=== PATIENT | female | born 1975 | race Caucasian/White ===

== ENCOUNTER 2021-01-12 07:16 | Emergency (ER) | payer BC, OTHER ==
[~2021-01-12] VITALS: Ht 162.6 cm; Wt 79.4 kg
[2021-01-12] MEDS ORDERED: TRAMADOL 50 MG50 MG PO (07:36)
[2021-01-12] MEDS ORDERED: VENTOLIN HFA 1818 GM INH (07:36)
[2021-01-12 07:56] LABS: BASOPHILS 0.3 % (0.0-2.0); EOSINOPHILS 0.7 % (0.0-3.0); HEMATOCRIT 40.5 % (37.0-47.0); HEMOGLOBIN 13.6 gm/dL (12.0-15.0); LYMPHOCYTES 29.8 % (24.0-44.0); MCH 30.2 pg (26.0-34.0); MCHC 33.6 g/dL (28.0-37.0); MONOCYTES 6.9 % (1.0-8.0); PLATELET COUNT 264 thou/uL (150-400); POLYS 62.3 % (36.0-66.0); RDW 12.8 % (10.5-14.5); WBC 6.4 thou/uL (4.0-11.0)
[2021-01-12 07:57] LABS: URINE BILIRUBIN NEGATIVE (Negative); URINE BLOOD TRACE (Negative); URINE CLARITY CLEAR; URINE COLOR YELLOW; URINE GLUCOSE-RANDOM* NEGATIVE (Negative); URINE KETONES NEGATIVE (Negative); URINE LEUKOCYTES-REFLEX NEGATIVE (Negative); URINE NITRITE-REFLEX NEGATIVE (Negative); URINE PROTEIN (DIPSTICK) NEGATIVE (Negative); URINE SPECIFIC GRAVITY >= 1.030 (1.005-1.035); URINE UROBILINOGEN 0.2 E.U./dl (0.2-1.0)
[2021-01-12 08:06] LABS: CALCIUM 9.1 mg/dL (8.5-10.1); CREATININE 0.9 mg/dL (0.6-1.0); POTASSIUM 3.2 mmol/L (3.5-5.1)
[2021-01-12 08:09] LABS: TOTAL BILIRUBIN 0.6 mg/dL (0.2-1.0); TOTAL PROTEIN 7.8 g/dL (6.4-8.2)
[2021-01-12] MEDS ORDERED: ONDANSETRON HCL4 M2 PO (08:30)
[2021-01-12] MEDS ORDERED: APAP W/CODEINE1 TA2 PO (08:30)
[2021-01-12] MEDS ORDERED: NAPROSYN500 MG PO (08:30)
[2021-01-12 08:45] VITALS: BP 128/74
== END 2021-01-12 08:47 | disposition home or self-care (01) ==
LOC: ER 07:16
PROVIDERS: Emergency Medicine
DX: K46.9 Unspecified abdominal hernia without obstruction or gangrene (principal); Z90.710 Acquired absence of both cervix and uterus

== ENCOUNTER 2021-01-19 06:30 | Day surgery (SDC) | payer BC, OTHER ==
[~2021-01-19] VITALS: Ht 162.6 cm; Wt 78.0 kg
--- NOTE | ~2021-01-19 | O ---
[facility] [place] [address] OPERATIVE REPORT Name: TAYLOR CARDENAS Room #: 150-1 [facility]#: [id number] Admission: 01/19/21 Attend Phys: Ross Reed MD Discharge: Date of : 73 Report #: [id number] THIS REPORT FOR: cc: Charlene Lauren MD, Catherine A. MD Chu, Peter Y. MD ~ DATE OF SERVICE: 01/19/2021 PREOPERATIVE DIAGNOSES: 1. Right inguinal hernia. 2. Incisional hernia adjacent to the umbilicus. 3. Left hypogastric incisional hernia 10 cm below the umbilicus. POSTOPERATIVE DIAGNOSES: 1. Right inguinal hernia. 2. Incisional hernia adjacent to the umbilicus. 3. Left hypogastric incisional hernia 10 cm below the umbilicus. PROCEDURE PERFORMED: 1. Laparoscopic repair of the right inguinal hernia with mesh. 2. Repair of hypogastric incisional hernia through the same laparoscopic approach. 3. Repair of incisional hernia at umbilicus through open approach. SURGEON: Ross Reed M.D. ANESTHESIA: General anesthesia. COMPLICATIONS: None. ESTIMATED BLOOD LOSS: 5 mL. DESCRIPTION OF PROCEDURE: With the patient under general anesthesia, Kaminski catheter was placed. Abdomen was prepped and draped in sterile fashion, timeout was performed. Sites of the hernia were marked preoperatively. Incision was made adjacent to the umbilicus in a curvilinear fashion. Then the skin was anesthetized with 0.25% Marcaine. The anterior fascia on the right side was identified. Anterior fascia was opened under visualization. The muscle was spread with a hemostat. The posterior fascia was intact. The space between the posterior fascia and the muscle was bluntly dissected free. An 11 mm balloon trocar was placed. CO2 was placed. A 5 mm trocar was placed about 2 inches below the umbilicus into the properitoneal space. Dissection of the properitoneal space was performed. The patient's lateral wall lateral to the epigastric vessel was opened up. A second 5 mm trocar was placed here. Inferiorly, dissection was carried out freeing the pubic bone past the midline. At the midline between the umbilicus and the pubic bone, there is an incisional [address] [address] OPERATIVE REPORT Name: TAYLOR CARDENAS Room #: 150-1 [facility]#: [id number] Admission: 01/19/21 Attend Phys: Ross Reed MD Discharge: Date of : 73 Report #: [id number] hernia present with the hernia sac inside of it. This is more of a longitudinal measuring about 2 cm . This defect was repaired using a medium size Ventralex patch. The strap was trimmed off of the patch. CB2 La Russell-Reilly sutures were placed on the mesh to separate strands. A small 2 mm incision was made. Suture retrieval was put through the fascia inferior grabbing one of the sutures and then same skin incision brought cephalad grabbing the other suture, the suture was tied down. The rest of the Ventralex patch was then tacked with the SorbaFix. The repair looked intact. Attention was then placed through the right inguinal hernia. The patient had a large amount of fat in the internal ring. The round ligament has been looked like already divided from the hysterectomy. I divided it again at the internal ring level. The herniated properitoneal fat, which may have indirect sac on the inside of it was able to be brought out of the internal ring. The internal ring defect was visualized without difficulty. No other defect was seen. There is a moderate enlarged lymph nodes right here. These were left alone. A large right-sided 3DMax lightweight mesh was then placed through the 11 mm trocar site. This was opened up, positioned properly covering and then brought laterally covering the internal ring well and extending beyond laterally. The mesh was tacked to the wall laterally with SorbaFix inferomedially to the Rasta's ligament above the pubic bone and then superomedially to the rectus muscle. The CO2 was evacuated then from the properitoneal space, trocars then removed. The infraumbilical incision was then extended past the umbilicus towards the left side, at which point an incisional hernia was found, left towards the left side of the umbilicus. There is herniated fat that is of fairly significant size, about 3 cm that was pushed through. This was freed from the surrounding subcutaneous tissue. The rest of the fascia was then opened up. The patient had a fairly good sized fascial defect measuring about 2.5 cm. Fascial edges are pretty thin. Properitoneal space was then dissected free with cautery and blunt dissection. After the properitoneal space was opened up, a large Ventralex patch was then placed in the properitoneal space. This opened up well. The fascia defect was then closed with horizontal mattress suture of 0 Prolene x3. This incorporated the strap of the Ventralex patch. The strap was then trimmed at the fascial level. Skin was then closed with 5-0 PDS at the umbilical incision and then 5-0 PDS at the 2 laparoscopic port sites. Skin was irrigated with a local anesthetic. I also placed about 10 mL of Marcaine in the suprapubic area on the right where the conjoined tendon was located. She had a previous incision here. This will be a trigger point injection. The patient was awakened and taken to recovery room, tolerated the procedure well. By: [id number] Ross Reed MD /nt
[~2021-01-19 06:30] MED LIST: APAP W/CODEINE1 TA2 PO; DULCOLAX PO; NAPROSYN500 MG PO; ONDANSETRON HCL4 M2 PO; OXYCODONE-APAP1 EAC4 PO; TRAMADOL 50 MG50 MG PO; VENTOLIN HFA 1818 GM INH
[2021-01-19 08:06] LABS: HEMATOCRIT 38.4 % (37.0-47.0); HEMOGLOBIN 12.8 gm/dL (12.0-15.0)
[2021-01-19 08:14] VITALS: BP 121/87
[2021-01-19] MEDS ORDERED: OXYCODONE-APAP1 EAC4 PO (11:50)
[2021-01-19 12:58] VITALS: BP 121/87
== END 2021-01-19 12:58 | disposition home or self-care (01) ==
LOC: OR 06:30 → TBA 06:31 → OR 09:18
PROVIDERS: ATTEND Surgery
DX: K40.90 Unilateral inguinal hernia, without obstruction or gangrene, not specified as recurrent (principal); K43.2 Incisional hernia without obstruction or gangrene; F17.210 Nicotine dependence, cigarettes, uncomplicated; Z98.890 Other specified postprocedural states; Z20.822 Contact with and (suspected) exposure to COVID-19; Z90.710 Acquired absence of both cervix and uterus; Z85.41 Personal history of malignant neoplasm of cervix uteri
CPT/HCPCS: 50010; 50101; 50130; 50411; 50455; 50507; 50555; 50621; 50687; 50848; 52265; 53065; 53307; 54022; 56462; 56524; 56525; 56526; 56530; 58574; 62110; 62900; 70005